=== PATIENT | male | born 1990 | race Caucasian/White ===

== ENCOUNTER 2018-05-06 18:45 | Emergency (ER) | payer OTHER ==
--- NOTE | 2018-05-06 18:47 | PDOC ---
Rapid Medical Evaluation Time Seen by Provider: 05/06/18 18:46 Medical Evaluation: 05/06/18 18:46 I have performed a brief in-person evaluation of this patient. The patient presents with a chief complaint of: Headache w/ CP, SOB and body aches today. Seen at [facility] 2 weeks ago for same w/ neg w/u per pt Pertinent physical exam findings: stable and well richar I have ordered the following: ekg/cxr/labs The patient will proceed to the ED for further evaluation. Discharge Disposition - Diagnosis Chest pain Qualifiers: Chest pain type: unspecified Qualified Code(s): R07.9 - Chest pain, unspecified - Referrals - Patient Instructions - Post Discharge Activity
[2018-05-06 18:51] VITALS: BMI 29.0
--- NOTE | 2018-05-06 23:42 | PDOC ---
History of Present Illness - General Chief Complaint: Chest Pain Stated Complaint: FATIGUE, CHEST PAIN, HEADACHE Time Seen by Provider: 05/06/18 18:46 - History of Present Illness Initial Comments: 05/06/18 23:34 Patient is a 27 year old male with no PMH who presents to the ED with a constellation of symptoms including sharp chest pain and vertigo that started acutely while he was working today. 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 today when he started having sharp, 10/10, substernal chest pain that did not radiate anywhere. Notes vertigo with onset of chest pain. Denies any nausea/vomiting, lightheadedness, palpitations. States pain is worse when lying down and relieved with sitting upright. Notes this same pain occurred two weeks previous at which time he was evaluated at [facility]. Is unsure of what tests were run but states everything was normal. Was discharged with Meclizine which he has not been taking. [employer] Surgical: denies Social: denies toxic habits PMD: None, will refer to IM resident clinic Past History - Past Medical History Allergies/Adverse Reactions: Allergies Allergy/AdvReac Type Severity Reaction Status Date / Time No Known Allergies Allergy Verified 05/06/18 18:50 COPD: No DVT: No - Suicide/Smoking/Psychosocial Hx Smoking History: Never smoked Information on smoking cessation initiated: No Hx Alcohol Use: No Drug/Substance Use Hx: No Substance Use Type: None Review of Systems - Review of Systems Constitutional: No: Chills, Fever HEENTM: No: Blurred Vision, Double Vision Respiratory: No: Cough, Shortness of Breath Cardiac (ROS): Yes: Chest Pain. No: Lightheadedness, Palpitations, Syncope ABD/GI: No: Constipated, Diarrhea, Nausea, Vomiting Neurological: Yes: Dizziness *Physical Exam - Vital Signs Last Vital Signs Temp Pulse Resp BP Pulse Ox 97.9 F 87 18 130/73 100 05/06/18 18:48 05/06/18 18:48 05/06/18 18:48 05/06/18 18:48 05/06/18 18:48 - Physical Exam General Appearance: Yes: Nourished, Appropriately Dressed HEENT: positive: EOMI, FARIDEH, Normal ENT Inspection Neck: positive: Trachea midline, Supple Respiratory/Chest: positive: Lungs Clear, Normal Breath Sounds Cardiovascular: positive: Regular Rate, S1, S2. negative: Edema, JVD, Murmur Vascular Pulses: Dorsalis-Pedis (R): 2+, Doralis-Pedis (L): 2+ Gastrointestinal/Abdominal: positive: Normal Bowel Sounds, Soft Extremity: positive: Normal Capillary Refill, Normal Inspection Integumentary: positive: Normal Color, Dry, Warm Neurologic: positive: Fully Oriented, Alert ED Treatment Course - LABORATORY CBC & Chemistry Diagram: 05/06/18 23:30 05/06/18 23:30 - RADIOLOGY Radiology Studies Ordered: Category Date Time Status HEAD CT WITHOUT CONTRAST [CT] Stat CT Scan 05/06/18 22:53 Taken Medical Decision Making - Medical Decision Making 05/06/18 23:42 27 year old male with chest pain and associated vertigo. Low clinical suspicion for ACS. Broad differential includes TIA, pericarditis, costochondritis, cardiomyopathy. Will obtain basic labs, Troponin x1, Head CT. Reassess. 05/07/18 01:[address] negative. CBC, CMP unremarkable. UTox negative. Troponin (-). 05/07/18 02:11 Patient symptomatically improved. Tolerating PO intake. Ambulatory around unit. Amenable to discharge. Counseled extensively on importance of establishing primary care. I discussed the physical exam findings, ancillary test results and final diagnoses with the patient. I answered all of the patient's questions. The patient was satisfied with the care received and felt comfortable with the discharge plan and treatment plan. The patient will return to the Emergency Department with any new, persistent or worsening symptoms. *DC/Admit/Observation/Transfer Diagnosis at time of Disposition: Chest pain Qualifiers: Chest pain type: unspecified Qualified Code(s): R07.9 - Chest pain, unspecified - Discharge Dispostion Disposition: HOME Condition at time of disposition: Good Decision to Admit order: No - Referrals Referrals: Osiel Phan MD [Staff Physician] - Giovanni Patel MD [Staff Physician] - Craig Arreguin MD [Staff Physician] - - Patient Instructions Printed Discharge Instructions: DI for Atypical Chest Pain Additional Instructions: Please make an appointment with Dr. Sylvester Cartagena to establish primary care. Take your Meclizine for any dizziness. Referrals to cardiology and neurology have been provided should your symptoms persist. Return to the Emergency Department for any new/worsening/concerning symptoms. - Post Discharge Activity
[2018-05-06 23:44] LABS: BASO % 0.5 % (0-2.0); EOS % 0.5 % (0-4.5); HEMATOCRIT 45.7 % (35.4-49); HEMOGLOBIN 15.4 GM/dL (11.7-16.9); LYMPH % 20.3 % (8-40); MCH 29.3 pg (25.7-33.7); MCHC 33.7 g/dl (32.0-35.9); MEAN CELL VOLUME 86.9 fl (80-96); MEAN PLT VOLUME 7.5 fl (7.5-11.1); MONO % 6.9 % (3.8-10.2); NEUT % 71.8 % (42.8-82.8); PLATELET COUNT 301 K/MM3 (134-434); RBC 5.25 M/mm3 (4.00-5.60); RDW 12.8 % (11.9-15.9); WHITE BLOOD COUNT 8.9 K/mm3 (4.0-10.0)
[2018-05-06 23:52] LABS: URINE APPEARANCE CLEAR; URINE BILIRUBIN NEGATIVE (<2.0 mg/dL); URINE COLOR YELLOW; URINE GLUCOSE (UA) NEGATIVE (NEGATIVE); URINE KETONE NEGATIVE (NEGATIVE); URINE LEUK ESTERASE NEGATIVE (NEGATIVE); URINE NITRITE NEGATIVE (NEGATIVE); URINE PROTEIN NEGATIVE (NEGATIVE); URINE UROBILINOGEN NEGATIVE mg/dL (0.2-1.0)
[2018-05-07 00:08] LABS: COCAINE, UR NEGATIVE ng/ml (CUTOFF=300); METHADONE, UR NEGATIVE ng/ml (CUTOFF=300); OPIATES, URI NEGATIVE ng/ml (CUTOFF=300); PHENCYCLIDINE,URINE NEGATIVE ng/ml (CUTOFF=25); URINE AMPHETAMINES NEGATIVE ng/ml (CUTOFF=500); URINE BARBITURATES NEGATIVE ng/ml (CUTOFF=200); URINE BENZODIAZEPINES NEGATIVE ng/ml (CUTOFF=200)
--- NOTE | 2018-05-07 00:09 | PDOC ---
Attending Attestation - Resident Resident Name: Lucy Felipe - ED Attending Attestation I have performed the following: I have examined & evaluated the patient, The case was reviewed & discussed with the resident, I agree w/resident's findings & plan, Exceptions are as noted - HPI HPI: 05/07/18 00:07 27-year-old male presents with a constellation of symptoms including chest pain , dizziness with some transient tingling in upper extremities He actually has had vertigo before and prescribed meclizine but he has not been taking his meclizine - Physicial Exam PE: 05/07/18 01:36 wnwd 27 yo male p/w vertigo,chest discomfort head ncat neck no [id number],no jvd ;lungs cta b/l cvs [id number] abd nontender ext no edema skin warm and dry neuro no ataxia,axox3,motor strength 5/5 b/l - Medical Decision Making 05/07/18 01:39 ekg nsr with no signs of ischermia,negative trop cbc and chemistries unremarkable no gross focal neuro deficits 05/07/18 01:46 ct scan of brain essentially normal IMP vertigo conrinue meclizine ,follow up with cards
[2018-05-07 00:12] LABS: ALBUMIN 4.7 g/dl (3.4-5.0); ANION GAP 8 (8-16); BILIRUBIN,TOTAL 0.5 mg/dL (0.2-1.0); BLOOD UREA NITROGEN 19 mg/dL (7-18); CALCIUM 9.6 mg/dL (8.5-10.1); CHLORIDE 96 mmol/L (98-107); CO2 30 mmol/L (21-32); CREATININE 1.3 mg/dL (0.7-1.3); GLUCOSE,RANDOM 97 mg/dL (74-106); POTASSIUM 3.6 mmol/L (3.5-5.1); SGOT/AST 23 U/L (15-37); SGPT/ALT 31 U/L (12-78); SODIUM 134 mmol/L (136-145); TOT PROT 8.7 g/dl (6.4-8.2)
[2018-05-07 00:19] LABS: ALK PHOS 92 U/L (45-117)
[2018-05-07 03:27] VITALS: BP 123/72; PULSE 72; TEMP 97.8
--- NOTE | 2018-05-08 16:48 | EKG ---
Test Reason : Blood Pressure : / mmHG Vent. Rate : 077 BPM Atrial Rate : 077 BPM P-R Int : 146 ms QRS Dur : 090 ms QT Int : 364 ms P-R-T Axes : 066 059 053 degrees QTc Int : 411 ms NORMAL SINUS RHYTHM NORMAL ECG NO PREVIOUS ECGS AVAILABLE Confirmed by YONI MAIER MD ([id number]) on 05/08/2018 3:49:06 PM Referred By: Confirmed By:YONI MAIER MD
== END 2018-05-07 03:20 | disposition home or self-care (01) ==
LOC: JER 18:45
DX: R07.89 Other chest pain (principal)
CPT/HCPCS: 36415; 70450-TC; 71046-TC-FY; 80053; 80307; 81003; 82550; 82553; 84484; 85025; 93005; 93010; 99283-25